=== PATIENT | female | born 1950 | race Caucasian/White ===

== ENCOUNTER → 2023-12-18 10:54 | Outpatient (REF) | payer MEDICARE, OTHER, SELFPAY | LOC: HWRAD 10:54 | PROVIDERS: ATTENDING PHYSICIAN Internal Medicine Critical Care Medicine; FAMILY PHYSICIAN Family Medicine; REFERRING PHYSICIAN Internal Medicine Cardiovascular Disease | DX: Z87.891 Personal history of nicotine dependence (principal) | CPT/HCPCS: 71271 ==

== ENCOUNTER → 2024-05-13 09:45 | Outpatient (REF) | payer MEDICARE, OTHER, SELFPAY | LOC: RAD 09:45 | PROVIDERS: ATTENDING PHYSICIAN Surgery Vascular Surgery | DX: I65.21 Occlusion and stenosis of right carotid artery (principal); I65.22 Occlusion and stenosis of left carotid artery | CPT/HCPCS: 93880 ==

== ENCOUNTER → 2025-04-04 10:33 | Outpatient (REF) | payer MEDICARE, OTHER, SELFPAY | LOC: HWRAD 10:33 | PROVIDERS: ATTENDING PHYSICIAN Internal Medicine Critical Care Medicine; FAMILY PHYSICIAN Family Medicine | DX: R91.8 Other nonspecific abnormal finding of lung field (principal) | CPT/HCPCS: 71250 ==

== ENCOUNTER → 2025-05-24 09:36 | Outpatient (REF) | payer MEDICARE, OTHER, SELFPAY | LOC: RAD 09:36 | PROVIDERS: ATTENDING PHYSICIAN Surgery Vascular Surgery; FAMILY PHYSICIAN Family Medicine | DX: I65.22 Occlusion and stenosis of left carotid artery (principal) | CPT/HCPCS: 93880 ==

== ENCOUNTER 2025-08-05 07:10 | Emergency (ER) | payer MEDICARE, OTHER, SELFPAY ==
[2025-08-05 07:13] VITALS: BP 174/71
--- NOTE | 2025-08-05 07:42 | ED.MUSCINJ ---
HPI-Injury
<Chauncey Messer PA-C - Last Filed: 08/05/25 14:41>
General
Chief Complaint: Musculo-Skeletal Complaint
Source: patient
Exam Limitations: none
Time Seen by Provider: 08/05/25 07:17
History of Present Illness-Injury
Initial Injury comments:
75-year-old female presents complaining of left ankle pain starting last evening. She was standing putting clothing away and her left ankle gave out and twisted. Since then she has had pain and swelling and inability to bear weight. She is not
anticoagulated. No other injury sustained with this. She lives at home by herself. She occasionally uses a cane to ambulate
Past History
<Chauncey Messer PA-C - Last Filed: 08/05/25 14:41>
Past History
ED Past Medical History: HTN and Hypercholesterolemia
ED Past Surgical History: Gynecological and Other (Vocal cord polypectomy)
Social History
Tobacco: Former smoker
Alcohol: None
Drug: None
Phy Exam
<Chauncey Messer PA-C - Last Filed: 08/05/25 14:41>
Physical Exam
Physical Exam:
General: Well-appearing female no acute respiratory distress
HEENT: Normal cephalic atraumatic
Musculoskeletal exam: Left ankle swollen tender over the anterior joint line as well as the inferior portion of the distal fibula. She is able to dorsiflex to about 90 degrees.
Vascular: 2+ PT pulse left foot
Good sensation left foot
Injury Course
<Chauncey Messer PA-C - Last Filed: 08/05/25 14:41>
Orders/Labs/Results
Orders:
Orders
08/05/25 07:17
Ankle, left 3 view CR [CR Ankle - Left Min 3 Views ] Urgent
Comment:
Reason For Exam: fall
08/05/25 07:40
CT Lower Ext W/o Iv Cont Lt Urgent
Comment:
Reason For Exam: possible tibia facture
08/05/25 08:34
PT Consult [Pt Eval And Treat] Urgent
Treatment: toe touch WB LLE in boot
Activity Level: Ambulate
08/05/25 09:45
Case Management Consult ONCE
Case Management Consult: Other
Requested By:: PHYSICIAN
Comment: rehab s/p ankle fracture
<Fletcher Casas, DO - Last Filed: 08/05/25 11:19>
Orders/Labs/Results
Orders:
Orders
08/05/25 07:17
Ankle, left 3 view CR [CR Ankle - Left Min 3 Views ] Urgent
Comment:
Reason For Exam: fall
08/05/25 07:40
CT Lower Ext W/o Iv Cont Lt Urgent
Comment:
Reason For Exam: possible tibia facture
08/05/25 08:34
PT Consult [Pt Eval And Treat] Urgent
Treatment: toe touch WB LLE in boot
Activity Level: Ambulate
08/05/25 09:45
Case Management Consult ONCE
Case Management Consult: Other
Requested By:: PHYSICIAN
Comment: rehab s/p ankle fracture
<Chauncey Messer PA-C - Last Filed: 08/05/25 14:41>
MDM/Problems Addressed
Differential Diagnosis Includes:
Left ankle pain after twisting injury. Suspect sprain versus fracture versus dislocation. I reviewed personally the x-rays of the ankle that were taken through triage there is a questionable fracture of the distal tibia. For further detail CT
scan was ordered
<Chauncey Messer PA-C - Last Filed: 08/05/25 14:41>
*Pulse Oximetry
SaO2: 93
Oxygen Mode of Delivery: Room air
Patient hypoxic: no
*Critical Care Note
Total Time (30-74mins, 75-104mins- exclusive of procedures): Not Applicable
<Chauncey Messer PA-C - Last Filed: 08/05/25 14:41>
Update Note
Update Note:
CT does demonstrate anterior lateral tibial plafond fracture with associated nondisplaced distal fibular fracture. Discussed with orthopedics. This is nonoperative with toe-touch weightbearing in a boot. The boot was fit. PT consult ordered for
functional evaluation with toe-touch weightbearing to the left lower extremity
PT saw the patient is recommending SNF secondary to functional limitation. Case management involved. Referrals will be sent from case management to SNF.
ED Attending Note
<Chauncey Messer PA-C - Last Filed: 08/05/25 14:41>
-
Portions of this chart may have been created with voice recognition software.� Occasional wrong word or��sound alike� substitutions may have occurred due to the inherent limitations of voice recognition software.
<Fletcher Casas DO - Last Filed: 08/05/25 11:19>
ED Attending Note
Patient seen and examined by attending physician: Yes
I performed the substantive portion of visit, reviewed & personally made and approve the management plan that is documented in note by myself or JANIE.: Yes
ED Attending Note:
Seen with PA examined independently slip and fall ankle fracture, apparently requires placement per PT evaluation disposition per case management required documentation
Discharge Plan
Departure
Patient Disposition: Long-Term/SNF
Date of Disposition: 08/05/25
Time of Disposition: 11:37
Patient with high blood pressure during this ER visit?: No
Discharge Problem:
Ankle fracture, left
Prescriptions:
No Action
atorvastatin 80 MG tablet
80 mg PO QPM
cholecalciferol (vitamin D3) 1,000 UNITS tablet
1,000 units PO DAILY
omega [id number] oil [Fish Oil] 1 EACH capsule
1 ea PO DAILY
ezetimibe 10 mg Tablet
10 mg PO QPM
coenzyme Q10 [Co Q-10] 100 mg Capsule
100 mg PO DAILY
mupirocin 2 % ointment
1 applic intranasal BID Qty: 1 0RF
Patient Comments:
Applied this am 05/14/23
aspirin 325 mg Tablet
325 mg PO DAILY Qty: 30 0RF
Rx Instructions:
Take daily x4 weeks for blood clot prevention; then resume Aspirin 81 mg daily.
docusate sodium 100 mg Capsule
100 mg PO BID Qty: 30 0RF
dexamethasone 4 mg Tablet
4 mg PO Q12 Qty: 5 0RF
Rx Instructions:
Restart night of discharge and take every 12 hours until finished.
Take with food.
hydrocodone-acetaminophen 5-325 mg Tablet
1 - 2 tab PO Q4HPRN PRN (Reason: moderate-severe pain) Qty: 30 0RF
Rx Instructions:
1 tab for moderate pain, 2 if severe.
Dx total joint.
famotidine 20 mg Tablet
20 mg PO HS Qty: 30 0RF
Rx Instructions:
Take nightly while on full dose Aspirin to prevent GI upset.
sennosides [Senna Laxative] 8.6 mg Tablet
17.2 mg PO BID Qty: 30 0RF
acetaminophen 325 mg Tablet
650 mg PO Q4HPRN PRN (Reason: mild pain) Qty: 60 0RF
Rx Instructions:
DO NOT exceed >4000 mg daily while on Hydrocodone.
1 Hydrocodone tab = 325 mg of Tylenol.
ondansetron HCl 4 mg tablet
4 mg PO Q6H PRN (Reason: nausea and vomiting) Qty: 20 0RF
cefadroxil 500 mg capsule
500 mg PO DAILY Qty: 7 0RF
Rx Instructions:
Start day after discharge and continue daily until finished.
Take with probiotic.
Saccharomyces boulardii [Florastor] 250 mg capsule
250 mg PO DAILY Qty: 7 0RF
Rx Instructions:
Over the counter. Take daily while on Cefadroxil.
If unavailable, choose a different probiotic.
lisinopril 20 MG tablet
20 mg PO DAILY Qty: 0 0RF
Rx Instructions:
HOLD IF systolic blood pressure <130 while on Hydrocodone.
amlodipine 10 MG tablet
10 mg PO DAILY Qty: 0 0RF
Rx Instructions:
HOLD IF systolic blood pressure <130 while on Hydrocodone.
diphenhydramine HCl [Benadryl] 25 mg Capsule
50 mg PO HS PRN (Reason: sleep/itching) Qty: 0 0RF
Rx Instructions:
Caution with Hydrocodone - can cause drowsiness.
Referrals:
Jonathan Grimaldo MD [Family Provider, Family Practice]
Interventions
Interventions:
*Risk Screen - Suicide Last Done: 08/05/25 07:13
*General Assessment Last Done: 08/05/25 07:13
*Neglect/Abuse Screening Last Done: 08/05/25 07:13
[facility] Risk Assessment Tool Last Done: 08/05/25 10:33
ED-Musculoskeletal Assessment Last Done: 08/05/25 10:33
Discharge Date and Time
Print Language: MALAWIAN
[2025-08-05 10:13] VITALS: BP 157/70
--- NOTE | 2025-08-05 11:37 | EDCM ---
Addendum entered by Marilynn Flanagan 08/05/25 15:23:
Received call from [facility], pt is approved and they are faxing waiver form to [place]. Clinicals faxed to [place]. Wheelchair van transport scheduled for 420pm, pt and family aware. Melanie BEY also aware.
Report: [phone]

Addendum entered by Marilynn Flanagan 08/05/25 12:44:
[facility] at [place] has an available bed, per Candace there is a Covid pt there and she asked that I notify Isabel about this, pt is agreeable to going to [facility]. I will request tentative 5pm transport, Candace aware.
Addendum entered by Marilynn Flanagan 08/05/25 12:39:
Kelsy Salas PA-C at Dr Grimaldo's office will do TeleHealth visit at 2pm. They will fax Office note directly to [facility], I will fax PT note.
Original Note:
Received consult and met with pt and family bedside in ED. Discussed PT recommendation of SNF. Informed them of Medicare requirement for 3 overnight days to pay for SNF. I called [facility], pt is part of the waiver program. Reviewed facilities that
are part of the waiver program, will send referrals to [facility] at [facility], [facility] and [facility].
Confirmed PCP is Jonathan Grimaldo, called the office to see if TeleHealth visit could be done. Dr Grimaldo is not in the office, they are checking to see if any other provided would be willing to complete.
== END 2025-08-05 16:55 ==
LOC: EMR 07:10
PROVIDERS: EMERGENCY PHYSICIAN Emergency Medicine; FAMILY PHYSICIAN Family Medicine
DX: S82.832A Other fracture of upper and lower end of left fibula, initial encounter for closed fracture (principal); W01.0XXA Fall on same level from slipping, tripping and stumbling without subsequent striking against object, initial encounter; I10 Essential (primary) hypertension; E78.00 Pure hypercholesterolemia, unspecified; Z87.891 Personal history of nicotine dependence
CPT/HCPCS: 99283; 73610; 73700; 99282